=== PATIENT | male | born 1990 | race African-American/Black ===

== ENCOUNTER 2017-09-06 15:20 | Emergency (ER) | payer OTHER ==
[~2017-09-06] VITALS: Ht 177.8 cm; Wt 75.0 kg
[~2017-09-06 15:20] MED LIST: ALBUTEROL S2.5 MG/.5 IN; ALBUTEROL0.083 % IN; AMOXICILLIN500 MG PO; CIPROFLOXACIN H0.3 % OP; NAPROSYN500 MG OR; NO; PERCOCET 5/325M1 TAB PO; ULTRAM50 MG OR; VENTOLIN HFA IN
[2017-09-06 15:49] VITALS: BP 144/77
== END 2017-09-06 15:49 | disposition left against medical advice (07) | DRG 951 ==
LOC: ED 15:20 → LWOBS 15:38
DX: Z91.19 Patient's noncompliance with other medical treatment and regimen (principal)